=== PATIENT | female | born 1985 | race Caucasian/White ===

== ENCOUNTER 2017-08-08 10:17 | Outpatient (RCR) | payer OTHER | END 2017-08-20 14:38 | disposition home or self-care (01) | LOC: WSOH 10:17 | DX: M25.531 Pain in right wrist (principal); M25.532 Pain in left wrist; M25.521 Pain in right elbow ==

== ENCOUNTER 2018-01-24 14:00 | Outpatient (RCR) | payer OTHER | END 2018-01-24 16:20 | disposition home or self-care (01) | LOC: MKS.ESL.PT 14:00 | DX: M25.561 Pain in right knee (principal) ==

== ENCOUNTER → 2018-05-09 | Outpatient (CLI) | payer OTHER | LOC: COL.LAB 10:08 | DX: R06.00 Dyspnea, unspecified (principal) ==

== ENCOUNTER 2019-01-06 15:44 | Emergency (ER) | payer OTHER ==
[~2019-01-06] VITALS: Ht 157.5 cm; Wt 68.2 kg
[2019-01-06 15:52] VITALS: BP 121/84; TEMP 97.9
[2019-01-06 17:00] VITALS: PULSE 80
== END 2019-01-06 17:05 | disposition home or self-care (01) ==
LOC: COL.ER 15:44
DX: S61.210A Laceration without foreign body of right index finger without damage to nail, initial encounter (principal); Z23 Encounter for immunization; W23.0XXA Caught, crushed, jammed, or pinched between moving objects, initial encounter

== ENCOUNTER → 2019-01-20 | Emergency (ER) | payer OTHER ==
[2019-01-20 13:30] VITALS: BP 120/66; PULSE 80; TEMP 98
== END ==
LOC: COL.ER 13:27
DX: S61.210D Laceration without foreign body of right index finger without damage to nail, subsequent encounter (principal); X58.XXXD Exposure to other specified factors, subsequent encounter

== ENCOUNTER 2019-05-07 10:56 | Outpatient (RCR) | payer OTHER | END 2019-05-09 13:41 | disposition home or self-care (01) | LOC: WSOH 10:56 | DX: S90.31XA Contusion of right foot, initial encounter (principal); M79.671 Pain in right foot; Z79.899 Other long term (current) drug therapy; W23.0XXA Caught, crushed, jammed, or pinched between moving objects, initial encounter; Y92.214 College as the place of occurrence of the external cause; Y99.0 Civilian activity done for income or pay ==

== ENCOUNTER → 2019-05-09 | Outpatient (CLI) | payer OTHER | LOC: ZCOL.LAB 16:27 | DX: J03.90 Acute tonsillitis, unspecified (principal) ==

== ENCOUNTER → 2023-06-13 | Outpatient (CLI) | payer BC | LOC: COL.CARD 08:29 | DX: R00.2 Palpitations (principal) ==